=== PATIENT | male | born 1960 | race Caucasian/White ===

== ENCOUNTER 2018-08-01 15:04 | Emergency (ER) | payer OTHER ==
[2018-08-01] MEDS ORDERED: NORMAL SALINE 1000 ML 1,000 ML IV ONE (15:48)
--- NOTE | 2018-08-01 15:48 | ER Document Report ---
ED Medical Screen (RME) - General Chief Complaint: Arm Problem Stated Complaint: ARM PAIN/BRUISING Time Seen by Provider: 08/01/18 15:47 Notes: Patient is a 57-year-old male that presents to the emergency department for chief complaint of right forearm swelling and pain and bruising. Patient states he noticed this on Tuesday and it seemed to get progressively worse of the last few days, he was doing a lot of change starting on Tuesday, he also reports having a cat bite about 1 week ago.. ROS: Unless otherwise stated in this report the patient's positive and negative responses for review of systems for constitutional, eyes, ENT, cardiovascular, respiratory, gastrointestinal, neurological, genitourinary, musculoskeletal, and integumentary systems and related systems to the presenting problem are either as stated in the HPI or were not pertinent or were negative for the symptoms and/or complaints related to the presenting medical problem. PHYSICAL EXAMINATION: Vital signs reviewed. GENERAL: Well-appearing, well-nourished and in no acute distress. HEAD: Atraumatic, normocephalic. EYES: Pupils equal round extraocular movements intact, conjunctiva are normal. ENT: Nares patent NECK: Normal range of motion CV: Heart regular rate and rhythm LUNGS: No respiratory distress Musculoskeletal: Normal range of motion, the right forearm is edematous, there is ecchymosis noted on the palmar aspect of the right wrist, with tenderness to palpate, and the swelling extends proximally, with some mottling of the skin. NEUROLOGICAL: Normal speech PSYCH: Normal mood, normal affect. MDM: Patient seen and examined for rapid initial assessment. Vital signs reviewed. A comprehensive ED assessment and evaluation of the patient, analysis of test results and completion of the medical decision making process will be conducted by additional ED providers. *Note is created using voice recognition software and may contain spelling, syntax or grammatical errors. TRAVEL OUTSIDE OF THE [place] IN LAST 30 DAYS: No - Related Data Allergies/Adverse Reactions: No Known Allergies Allergy (Unverified 08/01/18 15:06) Past Medical History - Social History Chew tobacco use (# tins/day): No Frequency of alcohol use: Occasional Drug Abuse: None Renal/ Medical History: Denies: Hx Peritoneal Dialysis Physical Exam - Vital signs Vitals: Temp Pulse Resp BP Pulse Ox 98.0 F 78 14 143/84 H 98 10/23/18 15:29 08/01/18 15:29 08/01/18 15:29 08/01/18 15:29 08/01/18 15:29 Course - Vital Signs Vital signs: Temp Pulse Resp BP Pulse Ox 98.0 F 78 14 143/84 H 98 08/01/18 15:29 08/01/18 15:29 08/01/18 15:29 08/01/18 15:29 08/01/18 15:29
--- NOTE | 2018-08-01 16:21 | ER Document Report ---
ED Extremity Problem, Upper - General Chief Complaint: Arm Problem Stated Complaint: ARM PAIN/BRUISING Time Seen by Provider: 08/01/18 15:47 Mode of Arrival: Ambulatory Information source: Patient Notes: 57-year-old male came to the emergency room today for bruising on his right forearm seems to be spreading up words. Tuesday for 6 hours he did very aggressive wood chopping with a chainsaw 3 hours at a time,he rested in between. Tuesday morning he woke up with soreness and swelling to his volar right wrist but did yard work for neighbor. Tuesday morning when he woke up the pain was worse. He was at work with a long sleeve shirt and a Marine shook his hand and it increased the volar forearm pain they pulled his shirt up and noticed the ecchymosis that was black and blue. The Marine told him that he had torn some he needed to be checked out at the hospital. Today the ecchymosis is more green but it seems to be spreading toward the antecubital space. On July 17 he had a stray cat bite to his right hand which did not get infected. He actually had scratches and other areas of his body. TRAVEL OUTSIDE OF THE [place] IN LAST 30 DAYS: No - Related Data Allergies/Adverse Reactions: No Known Allergies Allergy (Unverified 08/01/18 15:06) Past Medical History - General Information source: Patient - Social History Smoking Status: Current Every Day Smoker Chew tobacco use (# tins/day): No Frequency of alcohol use: Occasional Drug Abuse: None Lives with: Family Family History: Reviewed & Not Pertinent Patient has suicidal ideation: No Patient has homicidal ideation: No - Past Medical History Cardiac Medical History: Reports: Hx Hypertension Renal/ Medical History: Denies: Hx Peritoneal Dialysis Past Surgical History: Reports: Hx Appendectomy, Hx Tonsillectomy Review of Systems - Review of Systems Constitutional: No symptoms reported EENT: No symptoms reported Cardiovascular: No symptoms reported Respiratory: No symptoms reported Gastrointestinal: No symptoms reported Genitourinary: No symptoms reported Male Genitourinary: No symptoms reported Musculoskeletal: See HPI Skin: No symptoms reported Hematologic/Lymphatic: No symptoms reported Neurological/Psychological: No symptoms reported Physical Exam - Vital signs Vitals: Temp Pulse Resp BP Pulse Ox 98.0 F 78 14 143/84 H 98 08/01/18 15:29 08/01/18 15:29 08/01/18 15:29 08/01/18 15:29 08/01/18 15:29 Interpretation: Normal - General General appearance: Appears well, Alert - HEENT Head: Normocephalic, Atraumatic Eyes: Normal Pupils: PERRL - Respiratory Respiratory status: No respiratory distress Chest status: Nontender Breath sounds: Normal Chest palpation: Normal - Cardiovascular Rhythm: Regular Heart sounds: Normal auscultation Murmur: No - Abdominal Inspection: Normal Distension: No distension Bowel sounds: Normal Tenderness: Nontender Organomegaly: No organomegaly - Back Back: Normal, Nontender - Extremities General upper extremity: Normal inspection, Nontender, Normal color, Normal ROM , Normal temperature General lower extremity: Normal inspection, Nontender, Normal color, Normal ROM , Normal temperature, Normal weight bearing. No: Terrence's sign Wrist: Tender - volar right wrist with greenish purple ecchymosis which is tender, no identifiable hematoma but the area is warm. Nontender dorsal wrist and forearm. Nontender light green extension to mid forearm towards antecubital space. No erythema or lymphangitis. No axillary nodes. 2+ radial and ulnar pulse. FROM. The old Bite punctures and scratches are not infected or red there is some on the thenar aspect of the right palm - Neurological Neuro grossly intact: Yes Cognition: Normal Orientation: AAOx4 [place] Coma Scale Eye Opening: Spontaneous [place] Coma Scale Verbal: Oriented [place] Coma Scale Motor: Obeys Commands [place] Coma Scale Total: 15 Speech: Normal Motor strength normal: LUE, RUE, LLE, RLE Sensory: Normal - Psychological Associated symptoms: Normal affect, Normal mood - Skin Skin Temperature: Warm Skin Moisture: Dry Skin Color: Normal Skin irregularity: negative: Rash Course - Re-evaluation Re-evalutation: 08/01/18 17:11 Dr. Jeffries examined the patient as well and agrees that this is not an infectious process that it is due to the injury from chain sign. We will continue with the CBC PT comprehensive the EKG normal sinus rhythm no acute changes already been done and Accu-Chek is 93. 08/01/18 17:37 X-ray had already been done. 08/01/18 18:26 X-ray is negative per radiologist 08/01/18 18:37 Patient will use the splint tomorrow work. I showed him how to use it. - Vital Signs Vital signs: Temp Pulse Resp BP Pulse Ox 98.0 F 78 14 143/84 H 98 08/01/18 15:29 08/01/18 15:29 08/01/18 15:29 08/01/18 15:29 08/01/18 15:29 - Laboratory Result Diagrams: 08/01/18 17:05 08/01/18 17:05 Laboratory results interpreted by me: 08/01/18 08/01/18 17:05 17:05 RBC 4.12 L ALT 17 L Discharge - Discharge Clinical Impression: bruising right wrist, volar wrist sprain Condition: Good Disposition: HOME, SELF-CARE Instructions: Acetaminophen, Elevation & Warmth ([facility]), Wrist Sprain ([facility]), Temporary Splint ([facility]) Additional Instructions: Elevation and warm compresses with her arm extended to help your body resolved this bruising Splint to protect it and not strain it when you are at work Return to the emergency room any concerns Copy of lab work imaging and EKG given to you Forms: Return to Work
[2018-08-01 17:19] LABS: ABSOLUTE BASOPHILS # (AUTO) 0.1 10^3/uL (0.0-0.2); ABSOLUTE EOSINOPHILS # (AUTO) 0.1 10^3/uL (0.0-0.6); ABSOLUTE LYMPHOCYTES (AUTO) 1.4 10^3/uL (0.5-4.7); ABSOLUTE MONOCYTES (AUTO) 0.6 10^3/uL (0.1-1.4); ABSOLUTE NEUT (AUTO) 3.7 10^3/uL (1.7-8.2); BASOPHILS % (AUTO) 0.9 % (0-2); EOSINOPHILS % (AUTO) 2.2 % (0-6); HEMATOCRIT 37.9 % (37.9-51.0); HEMOGLOBIN 13.5 g/dL (13.5-17.0); LYMPHOCYTES % (AUTO) 23.2 % (13-45); MEAN CORPUSCULAR HEMOGLOBIN 32.7 pg (27.0-33.4); MEAN CORPUSCULAR HGB CONC 35.5 g/dL (32.0-36.0); MEAN CORPUSCULAR VOLUME 92 fl (80-97); MONOCYTES % (AUTO) 10.8 % (3-13); PLATELET COUNT 179 10^3/uL (150-450); RED BLOOD COUNT 4.12 10^6/uL (4.35-5.55); RED CELL DISTRIBUTION WIDTH 12.9 % (11.5-14.0); SEGMENTED NEUTROPHILS % (AUTO) 62.9 % (42-78); TOTAL CELLS COUNTED % (AUTO) 100 %; WHITE BLOOD COUNT 5.9 10^3/uL (4.0-10.5)
[2018-08-01 17:24] LABS: PROTHROMBIN TIME 12.6 SEC (11.4-15.4)
[2018-08-01 17:36] LABS: ALANINE AMINOTRANSFERASE 17 U/L (21-72); ALBUMIN 4.3 g/dL (3.5-5.0); ALKALINE PHOSPHATASE 49 U/L (38-126); ANION GAP 6 (5-19); ASPARTATE AMINO TRANSFERASE 20 U/L (17-59); BILIRUBIN,DIRECT 0.2 mg/dL (0.0-0.4); BILIRUBIN,TOTAL 0.7 mg/dL (0.2-1.3); BLOOD UREA NITROGEN 14 mg/dL (7-20); CALCIUM 9.8 mg/dL (8.4-10.2); CARBON DIOXIDE 28 mmol/L (22-30); CHLORIDE 103 mmol/L (98-107); CREATINE KINASE 141 U/L (55-170); GLUCOSE 87 mg/dL (75-110); POTASSIUM 4.6 mmol/L (3.6-5.0); SODIUM 137.3 mmol/L (137-145); TOTAL PROTEIN 6.7 g/dL (6.3-8.2)
--- NOTE | 2018-08-01 18:08 | RADIOLOGY REPORT (SQ) ---
EXAM DESCRIPTION: FOREARM RIGHT COMPLETED DATE/TIME: 08/01/2018 4:53 pm REASON FOR STUDY: pain, swelling COMPARISON: None. NUMBER OF VIEWS: Two views. TECHNIQUE: Two radiographic images acquired of the right forearm, including elbow and wrist in at le ast one projection. LIMITATIONS: None. FINDINGS: MINERALIZATION: Normal. BONES: No acute fracture. No worrisome bone lesions. SOFT TISSUES: No obvious swelling or foreign body. OTHER: No other significant finding. IMPRESSION: NEGATIVE STUDY OF THE RIGHT FOREARM. NO RADIOGRAPHIC EVIDENCE OF ACUTE INJURY. TECHNICAL DOCUMENTATION: JOB ID: [id number] [employer]- All Rights Reserved Reading location - IP/workstation name: [email or web address]
[2018-08-01 18:51] VITALS: BP 150/86
--- NOTE | 2018-08-01 21:02 | EKG REPORT ---
SEVERITY:- NORMAL ECG - SINUS RHYTHM : Confirmed by: Etta Bowman 01-Aug-2018 21:01:30
== END 2018-08-01 18:50 | disposition home or self-care (01) ==
LOC: ER 15:04
DX: S63.509A Unspecified sprain of unspecified wrist, initial encounter (principal); S60.211A Contusion of right wrist, initial encounter; X58.XXXA Exposure to other specified factors, initial encounter; S61.451D Open bite of right hand, subsequent encounter; W55.01XD Bitten by cat, subsequent encounter; F17.200 Nicotine dependence, unspecified, uncomplicated; I10 Essential (primary) hypertension
CPT/HCPCS: 93005; 99284; 36415; 82962; 82550; 85025; 85610; 80053; 73090; 93010; L3908

== ENCOUNTER 2020-03-15 13:29 | Emergency (ER) | payer OTHER ==
--- NOTE | 2020-03-15 14:08 | ER Document Report ---
ED Medical Screen (RME) - General Chief Complaint: Back Pain Stated Complaint: BACK PAIN Time Seen by Provider: 03/15/20 14:06 Information source: Patient Notes: This 59-year-old male presented to the emergency room today stating he is having left-sided back pain starting at the SI joint radiating down the lower extremity he was at [facility] yesterday they did x-rays of his back but him on prednisone muscle relaxer and pain medication he stated that he started having his lower extremity just giving out on him while he was ambulating causing him an ambulatory disturbance. I greeted and performed a rapid initial assessment of this patient. Comprehensive ED assessment and evaluation of the patient, analysis of test results and completion of the medical decision making process will be conducted by additional ED providers. TRAVEL OUTSIDE OF THE [place] IN LAST 30 DAYS: No - Related Data Allergies/Adverse Reactions: No Known Allergies Allergy (Unverified 08/01/18 15:06) Past Medical History - Past Medical History Cardiac Medical History: Reports: Hx Hypertension Renal/ Medical History: Denies: Hx Peritoneal Dialysis Past Surgical History: Reports: Hx Appendectomy, Hx Tonsillectomy Physical Exam - Vital signs Vitals: Temp Pulse Resp BP Pulse Ox 97.6 F 66 14 149/82 H 100 03/15/20 13:32 03/15/20 13:32 03/15/20 13:32 03/15/20 13:32 03/15/20 13:32 Course - Vital Signs Vital signs: Temp Pulse Resp BP Pulse Ox 97.6 F 66 14 149/82 H 100 03/15/20 13:32 03/15/20 13:32 03/15/20 13:32 03/15/20 13:32 03/15/20 13:32
[2020-03-15 14:32] LABS: ABSOLUTE LYMPHOCYTES (AUTO) 0.9 10^3/uL (0.5-4.7); ABSOLUTE MONOCYTES (AUTO) 0.5 10^3/uL (0.1-1.4); ABSOLUTE NEUT (AUTO) 7.8 10^3/uL (1.7-8.2); BASOPHILS % (AUTO) 0.1 % (0-2); HEMATOCRIT 39.4 % (37.9-51.0); HEMOGLOBIN 13.9 g/dL (13.5-17.0); MEAN CORPUSCULAR HGB CONC 35.4 g/dL (32.0-36.0); MEAN CORPUSCULAR VOLUME 93 fl (80-97); MONOCYTES % (AUTO) 5.3 % (3-13); PLATELET COUNT 179 10^3/uL (150-450); RED BLOOD COUNT 4.23 10^6/uL (4.35-5.55); RED CELL DISTRIBUTION WIDTH 12.9 % (11.5-14.0); SEGMENTED NEUTROPHILS % (AUTO) 84.6 % (42-78); TOTAL CELLS COUNTED % (AUTO) 100 %; WHITE BLOOD COUNT 9.3 10^3/uL (4.0-10.5)
[2020-03-15 14:46] LABS: APPEARANCE,URINE CLEAR; BILIRUBIN,URINE NEGATIVE (NEGATIVE); COLOR,URINE STRAW; GLUCOSE, URINE NEGATIVE (NEGATIVE); KETONES,URINE NEGATIVE (NEGATIVE); LEUKOCYTE ESTERASE,URINE NEGATIVE (NEGATIVE); NITRITE,URINE NEGATIVE (NEGATIVE); PROTEIN,URINE NEGATIVE (NEGATIVE); URINE SPECIFIC GRAVITY 1.003; UROBILINOGEN,URINE NEGATIVE mg/dL (<2.0)
[2020-03-15 14:51] LABS: ALBUMIN 4.3 g/dL (3.5-5.0); ALKALINE PHOSPHATASE 44 U/L (38-126); ANION GAP 7 (5-19); ASPARTATE AMINO TRANSFERASE 21 U/L (17-59); BILIRUBIN,TOTAL 0.4 mg/dL (0.2-1.3); BLOOD UREA NITROGEN 18 mg/dL (7-20); CALCIUM 9.5 mg/dL (8.4-10.2); CARBON DIOXIDE 25 mmol/L (22-30); CHLORIDE 100 mmol/L (98-107); GLUCOSE 119 mg/dL (75-110); POTASSIUM 4.6 mmol/L (3.6-5.0); TOTAL PROTEIN 6.8 g/dL (6.3-8.2)
--- NOTE | 2020-03-15 15:15 | RADIOLOGY REPORT (SQ) ---
EXAM DESCRIPTION: CT LUMBAR SPINE WITHOUT IMAGES COMPLETED DATE/TIME: 03/15/2020 2:37 pm REASON FOR STUDY: pain COMPARISON: None. TECHNIQUE: Axial images acquired through the lumbar spine without intravenous contrast. Images revie wed with lung, soft tissue and bone windows. Reconstructed coronal and sagittal MPR images reviewed. Images stored on PACS. All CT scanners at this facility use dose modulation, iterative reconstruction, and/or weight based d osing when appropriate to reduce radiation dose to as low as reasonably achievable (ALARA). [facility]: Dose Right [facility]: CareDose [facility]: Dose Right [facility]: Teradose 4D [facility]: OpenChime RADIATION DOSE: mGy. LIMITATIONS: None. FINDINGS: SOFT TISSUES: No soft tissue swelling. No masses. SEGMENTATION: Normal. No transitional anatomy. ALIGNMENT: 9 mm anterolisthesis of L5 on S1 due to bilateral pars interarticularis defects. VERTEBRAL BODIES: No fractures. No dislocation. No acute findings. DISCS: High-grade disc space narrowing at the L5-S1 level with marginal osteophytes. PEDICLES, TRANSVERSE PROCESSES: No fractures. No dislocation. No acute findings. HARDWARE: None in the spine. VISUALIZED RIBS: No fractures. OTHER: No other significant finding. IMPRESSION: 9 mm anterolisthesis of L5 on S1 due to bilateral pars interarticularis defects.High-gra de disc space narrowing at the L5-S1 level with marginal osteophytes. DEGENERATIVE CHANGES IN THE LUM BAR SPINE WITHOUT ACUTE FRACTURE. TECHNICAL DOCUMENTATION: JOB ID: [id number] Quality ID # [id number]: Final reports with documentation of one or more dose reduction techniques (e.g., Au tomated exposure control, adjustment of the mA and/or kV according to patient size, use of iterative reconstruction technique) 2010 [employer]- All Rights Reserved Reading location - IP/workstation name: [email or web address]
[2020-03-15] MEDS ORDERED: HYDROMORPHONE HCL INJ/PF 2 MG/ML AMPULE IM ONE ×2 (17:33→19:17)
--- NOTE | 2020-03-15 17:37 | ER Document Report ---
ED Neck/Back Problem - General Chief Complaint: Back Pain Stated Complaint: BACK PAIN Time Seen by Provider: 03/15/20 14:06 Primary Care Provider: [facility] [Provider Group] - Follow up as needed [facility] [[facility]] - Follow up as needed Information source: Patient Notes: Patient states that he picked up a yard back 6 days ago and had sudden lower back pain that radiates to the left side. Patient denies any urinary retention or incontinence. Patient states that he has had episodes in which his leg gives out on him and he has fallen at home. Patient states that he hurt his left knee and complains of left knee pain as well. Patient denies any head injury or loss of consciousness. Patient denies any previous history of back injuries or pain. Patient states that he did see a provider recently and was placed on muscle relaxers steroids and Motrin. TRAVEL OUTSIDE OF THE [place] IN LAST 30 DAYS: No - HPI Patient complains to provider of: Pain, Lower back Onset: Last week Where: Home Timing: Still present, Worse Quality of pain: Sharp Pain Level: 5 Context: Fall/near-fall, Lifting Associated symptoms: Radiation to leg, Lower back pain. denies: Unable to urinate Relieved by: Nothing Similar symptoms previously: No Recently seen / treated by doctor: Yes - Related Data Allergies/Adverse Reactions: No Known Allergies Allergy (Unverified 08/01/18 15:06) Past Medical History - General Information source: Patient - Social History Smoking Status: Current Every Day Smoker Chew tobacco use (# tins/day): No Frequency of alcohol use: Occasional Drug Abuse: None Lives with: Family Family History: Reviewed & Not Pertinent Patient has homicidal ideation: No - Past Medical History Cardiac Medical History: Reports: Hx Hypertension Renal/ Medical History: Denies: Hx Peritoneal Dialysis Past Surgical History: Reports: Hx Appendectomy, Hx Tonsillectomy Review of Systems - Review of Systems Constitutional: No symptoms reported. denies: Fever EENT: No symptoms reported Cardiovascular: No symptoms reported Respiratory: No symptoms reported. denies: Cough Gastrointestinal: No symptoms reported Genitourinary: No symptoms reported. denies: Dysuria, Incontinence, Retention Male Genitourinary: No symptoms reported Musculoskeletal: Back pain Skin: No symptoms reported Hematologic/Lymphatic: No symptoms reported Neurological/Psychological: No symptoms reported Physical Exam - Vital signs Vitals: Temp Pulse Resp BP Pulse Ox 97.6 F 66 14 149/82 H 100 03/15/20 13:32 03/15/20 13:32 03/15/20 13:32 03/15/20 13:32 03/15/20 13:32 - General General appearance: Alert In distress: Moderate - HEENT Head: Normocephalic, Atraumatic Eyes: Normal Conjunctiva: Normal Mouth/Lips: Normal Mucous membranes: Normal Neck: Normal, Supple - Respiratory Respiratory status: No respiratory distress Chest status: Nontender Breath sounds: Normal Chest palpation: Normal - Cardiovascular Rhythm: Regular Heart sounds: S1 appreciated, S2 appreciated Murmur: No - Back Back: Vertebra tenderness - Lower lumbar midline tenderness. No: Deformity/step-off - Extremities General upper extremity: Normal inspection, Normal strength General lower extremity: Normal inspection, Normal strength - Neurological Neuro grossly intact: Yes Cognition: Normal [place] Coma Scale Eye Opening: Spontaneous [place]anna Coma Scale Verbal: Oriented [place] Coma Scale Motor: Obeys Commands [place] Coma Scale Total: 15 Notes: No saddle anesthesia, no foot drop, positive straight leg test on the left at 30 degrees - Psychological Associated symptoms: Normal affect, Normal mood - Skin Skin Temperature: Warm Skin Moisture: Dry Skin Color: Normal Course - Re-evaluation Re-evalutation: 03/15/20 19:27 Patient MRI results reviewed, no acute surgical emergent problem. Patient given a copy of his report and encouraged to follow-up with his primary doctor, pain management as well as orthopedic spinal doctor for further management. Patient appears visibly more comfortable and is ambulatory at bedside. Normal gait in room. Patient neurologically intact. Good return precautions discussed with patient. - Vital Signs Vital signs: Temp Pulse Resp BP Pulse Ox 97.6 F 66 14 149/82 H 100 03/15/20 14:04 03/15/20 13:32 03/15/20 13:32 03/15/20 13:32 03/15/20 13:32 - Laboratory Result Diagrams: 03/15/20 14:20 03/15/20 14:20 Laboratory results interpreted by me: 03/15/20 03/15/20 14:20 14:20 RBC 4.23 L Lymph % (Auto) 10.0 L Seg Neutrophils % 84.6 H Sodium 131.7 L Glucose 119 H 03/15/20 19:27 Labs- All tests 24 hr 03/15/20 03/15/20 03/15/20 14:20 14:20 14:20 WBC 9.3 RBC 4.23 L Hgb 13.9 Hct 39.4 MCV 93 MCH 33.0 MCHC 35.4 RDW 12.9 Plt Count 179 Lymph % (Auto) 10.0 L [place] % (Auto) 5.3 Eos % (Auto) 0.0 Baso % (Auto) 0.1 Absolute Neuts (auto) 7.8 Absolute Lymphs (auto) 0.9 Absolute Monos (auto) 0.5 Absolute Eos (auto) 0.0 Absolute Basos (auto) 0.0 Seg Neutrophils % 84.6 H Sodium 131.7 L Potassium 4.6 Chloride 100 Carbon Dioxide 25 Anion Gap 7 BUN 18 Creatinine 0.90 Est GFR ( Amer) > 60 Est GFR (MDRD) Non-Af > 60 Glucose 119 H Calcium 9.5 Total Bilirubin 0.4 Direct Bilirubin 0.0 Neonat Total Bilirubin Not Reportable Neonat Direct Bilirubin Not Reportable Neonat Indirect Bili Not Reportable AST 21 ALT 18 Alkaline Phosphatase 44 Total Protein 6.8 Albumin 4.3 Urine Color STRAW Urine Appearance CLEAR Urine pH 6.0 Ur Specific [place] 1.003 Urine Protein NEGATIVE Urine Glucose (UA) NEGATIVE Urine Ketones NEGATIVE Urine Blood NEGATIVE Urine Nitrite NEGATIVE Urine Bilirubin NEGATIVE Urine Urobilinogen NEGATIVE Ur Leukocyte Esterase NEGATIVE Urine WBC (Auto) 0 Urine RBC (Auto) 1 Squamous Epi Cells Auto <1 Urine Mucus (Auto) RARE Urine Ascorbic Acid NEGATIVE - Diagnostic Test Radiology reviewed: Reports reviewed Discharge - Discharge Clinical Impression: Low back pain Qualifiers: Chronicity: acute Back pain laterality: left Sciatica presence: with sciatica Sciatica laterality: sciatica of left side Qualified Code(s): M54.42 - Lumbago with sciatica, left side Left knee pain Qualifiers: Chronicity: acute Qualified Code(s): M25.562 - Pain in left knee Condition: Stable Disposition: HOME, SELF-CARE Instructions: Ice Packs ([facility]), Low Back Pain ([facility]), Oral Narcotic Medication ([facility]) Additional Instructions: Return immediately for any new or worsening symptoms Followup with your primary care provider, call tomorrow to make a followup camilla ointment Follow-up with pain management for further evaluation You may need follow-up with orthopedic spinal specialist, your primary doctor can make this referral for you Prescriptions: Lidocaine [Lidoderm 5% (700 mg) Transdermal Patch] 1 patch TP DAILY PRN #10 adh..patch PRN Reason: Oxycodone HCl/Acetaminophen [Percocet 5-325 mg Tablet] 1 tab PO ASDIR PRN #15 tablet PRN Reason: Referrals: [facility] [Primary Care [facility]] - Follow up as needed [facility] [Provider Group] - Follow up as needed
--- NOTE | 2020-03-15 18:16 | RADIOLOGY REPORT (SQ) ---
EXAM DESCRIPTION: KNEE LEFT 4 VIEW IMAGES COMPLETED DATE/TIME: 03/15/2020 5:57 pm REASON FOR STUDY: fall, L knee pain COMPARISON: None. NUMBER OF VIEWS: Four views. TECHNIQUE: AP, lateral, and both oblique radiographic images acquired of the left knee. LIMITATIONS: None. FINDINGS: MINERALIZATION: Normal. BONES: No acute fracture or dislocation. No worrisome bone lesions. JOINT: No effusion. SOFT TISSUES: No soft tissue swelling. No radio-opaque foreign body. OTHER: No other significant finding. IMPRESSION: No identifiable acute osseous abnormality of the left knee. TECHNICAL DOCUMENTATION: JOB ID: [id number] 2010 [employer]- All Rights Reserved Reading location - IP/workstation name: [email or web address]
--- NOTE | 2020-03-15 19:00 | RADIOLOGY REPORT (SQ) ---
EXAM DESCRIPTION: MRI LUMBAR SPINE WITHOUT IMAGES COMPLETED DATE/TIME: 03/15/2020 6:17 pm REASON FOR STUDY: low back pain, L leg gives out COMPARISON: None. TECHNIQUE: Sagittal and Axial imaging includes T1, T2, STIR and gradient echo sequences. Coronal T2/ HASTE imaging. LIMITATIONS: None. FINDINGS: VISUALIZED UPPER ABDOMEN: Limited evaluation. No acute or suspicious findings suggested. SEGMENTATION: No transitional anatomy. The lowest well-developed disc space is labeled L5-S1. ALIGNMENT: 8 mm anterolisthesis of L5 on S1 due to bilateral pars interarticularis defects. VERTEBRAE: Intact. BONE MARROW: Reactive chronic discogenic endplate changes at the L5-S1 level. DISC SIGNAL: High-grade disc height loss at the L5-S1 level with 5 mm uncovering of the posterior dis c margin. 8 mm superior disc extrusion in the left lateral recess posterior to the L3 vertebral body with mild lateral recess -left neural foraminal narrowing. Mild global disc bulging at the L3-4 lev el. POSTERIOR ELEMENTS: Bilateral L5 pars interarticularis defects. HARDWARE: None in the spine. CORD AND CONUS: Normal in size and signal intensity. Conus at the appropriate level. SOFT TISSUES: No aortic aneurysm seen. No bulky retroperitoneal adenopathy or mass. No paraspinal mas s or fluid. L1-L2: No significant spinal stenosis or exit foraminal stenosis. L2-L3: No significant spinal stenosis or exit foraminal stenosis. L3-L4: No significant spinal stenosis. 8 mm superior disc extrusion in the left lateral recess pie bottomer ior to the L3 vertebral body with mild lateral recess -left L3-4 neural foraminal narrowing. L4-L5: No significant spinal stenosis or exit foraminal stenosis. L5-S1: No significant spinal stenosis. Moderate bilateral L5-S1 exit foraminal stenosis due to spond ylolisthesis. LOWER THORACIC: Incompletely imaged. No stenosis seen. SACRUM: Visualized upper sacrum intact. OTHER: No other significant findings. IMPRESSION: Moderate bilateral L5-S1 exit foraminal stenosis due to spondylolisthesis.No significant spinal stenosis. 8 mm superior disc extrusion in the left lateral recess posterior to the L3 verteb ral body with mild lateral recess -left L3-4 neural foraminal narrowing. TECHNICAL DOCUMENTATION: JOB ID: [id number] 2010 [employer]- All Rights Reserved Reading location - IP/workstation name: [email or web address]
[2020-03-15 20:40] VITALS: BP 154/75
== END 2020-03-15 20:40 | disposition home or self-care (01) ==
LOC: ER 13:29
DX: M54.42 Lumbago with sciatica, left side (principal); M25.562 Pain in left knee; F17.200 Nicotine dependence, unspecified, uncomplicated; I10 Essential (primary) hypertension
CPT/HCPCS: 99284; 96372; 36415; 85025; 80053; 81001; 72148; 73564; 72131; J1170

== ENCOUNTER 2020-07-21 07:04 | Day surgery (SDC) | payer OTHER ==
[2020-07-21] MEDS ORDERED: PROPOFOL INJ 200 MG/20 ML VIAL IV ONE (07:41)
[2020-07-21] MEDS ORDERED: LIDOCAINE 2% INJ-PF (20 MG/ML) 10 ML AMPUL ONE (07:41)
--- NOTE | 2020-07-21 08:19 | Operative Report ---
Operative Report DATE OF SURGERY: 07/21/20 Operative Report: The risk, benefits and alternatives of the procedure including the risk of bleeding, perforation requiring surgery have been explained to the patient in detail and informed consent has been obtained. Patient was placed in left, lateral decubital position. Timeout was called. Propofol medication is administered. Rectal examination is done which did not reveal any masses, tears or fissures. An Olympus videoscope was introduced into the patient's rectum. Scope was then carefully advanced all the way to the cecum. Cecum was identified by the usual anatomical landmarks of the ileocecal valve as well as the appendiceal office. Photodocumentation is obtained. Scope was then sequentially pulled back via the various segments of the colon including the ascending colon, hepatic flexure, transverse colon, splenic flexure, descending colon and finally into the rectosigmoid portions of the colon. Retroflexion maneuvers performed. PREOPERATIVE DIAGNOSIS: Colorectal cancer screening POSTOPERATIVE DIAGNOSIS: Right side colon inflammation status post biopsy OPERATION: Colonoscopy with biopsy SURGEON: JUN JEWELL ANESTHESIA: LMAC TISSUE REMOVED OR ALTERED: As noted above. COMPLICATIONS: None. ESTIMATED BLOOD LOSS: None. INTRAOPERATIVE FINDINGS: As noted above. PROCEDURE: Patient tolerated the procedure well. No immediate postprocedure complications are noted. Patient is discharged in good condition. Discharge date 07/21/2020. Discharge diet: Regular. Discharge activity: Regular. 2 to 3-week follow-up to discuss findings. Patient is instructed to call the office or proceed to the emergency room should there be any further questions. Wait on the pathology. If biopsies are negative consider 10-year surveillance colonoscopy.
[2020-07-21 08:50] VITALS: BP 139/86
== END 2020-07-21 08:55 | disposition home or self-care (01) ==
LOC: END 07:04
PROVIDERS: ATTEND Internal Medicine Gastroenterology
DX: Z12.11 Encounter for screening for malignant neoplasm of colon (principal); Z12.12 Encounter for screening for malignant neoplasm of rectum; K52.9 Noninfective gastroenteritis and colitis, unspecified; Z03.818 Encounter for observation for suspected exposure to other biological agents ruled out; F17.210 Nicotine dependence, cigarettes, uncomplicated; Z79.899 Other long term (current) drug therapy; Z79.82 Long term (current) use of aspirin; I10 Essential (primary) hypertension; G40.909 Epilepsy, unspecified, not intractable, without status epilepticus
CPT/HCPCS: 45380; 87635; 88305 ×2; J2704; J3490; C9803; 812

== ENCOUNTER → 2020-07-21 | Outpatient (CLI) | payer OTHER ==
[2020-07-21 10:32] LABS: ALKALINE PHOSPHATASE 74 U/L (38-126); ANION GAP 12 (5-19); ASPARTATE AMINO TRANSFERASE 28 U/L (17-59); BILIRUBIN,DIRECT 0.4 mg/dL (0.0-0.4); BILIRUBIN,TOTAL 1.2 mg/dL (0.2-1.3); BLOOD UREA NITROGEN 13 mg/dL (7-20); CALCIUM 9.9 mg/dL (8.4-10.2); CARBON DIOXIDE 22 mmol/L (22-30); CHLORIDE 103 mmol/L (98-107); CHOLESTEROL 296.38 mg/dL (0-200); GLUCOSE 87 mg/dL (75-110); POTASSIUM 5.1 mmol/L (3.6-5.0); TOTAL PROTEIN 7.4 g/dL (6.3-8.2); TRIGLYCERIDES 307 mg/dL (<150)
[2020-07-21 10:44] LABS: DIRECT LDL 211 mg/dL (<100)
[2020-07-21 11:14] LABS: VLDL CHOLESTEROL 61.4 mg/dL (10-31)
== END ==
LOC: OD 09:14
PROVIDERS: ATTEND Family Medicine
DX: Z13.1 Encounter for screening for diabetes mellitus (principal); Z12.5 Encounter for screening for malignant neoplasm of prostate; Z13.220 Encounter for screening for lipoid disorders
CPT/HCPCS: 36415; 80053; 80061; 84153